=== PATIENT | female | born 1935 | race Caucasian/White ===

== ENCOUNTER 2018-10-22 22:38 | Inpatient (IN) ==
[2018-10-22 23:14] LABS: Basophils # 0.1 10*3/uL (0.0-0.2); Basophils % 0.5 % (0.0-0.8); Eosinophils # 0.5 10*3/uL (0.0-0.87); Eosinophils % 4.5 % (0.00-10.9); Hemoglobin 12.7 GM/DL (12.0-16.0); Immature Granulocytes % 0.5 %; Immature Granulocytes Absolute 0.06 #; Lymphocytes # 2.3 10*3/uL (1.4-4.0); Lymphocytes % 19.5 % (21.3-54.2); Mean Corpuscular HGB Conc 31.8 GM/DL (32-36); Mean Corpuscular Volume 99.5 FL (87-102); Mean Platelet Volume 10.9 FL (9.6-12.0); Monocytes % 8.6 % (1.7-12.7); Neutrophils % 66.4 % (38.7-73.9); Platelet Count 201 T/CUMM (130-400); Red Blood Count 4.02 MC/CUMM (3.8-5.5); Red Cell Distribution Width 13.1 % (9.3-17.3); White Blood Count 11.8 T/CUMM (4-12)
[2018-10-22] MEDS ORDERED: NITROGLYCERIN 2% OINT 1 INCH/GM PACK TOP STA (23:20)
[2018-10-22] MEDS ORDERED: ALBUTEROL/IPRATROPIUM 3 ML NEB RESP TX STA (23:20)
[2018-10-22] MEDS ORDERED: ONDANSETRON 4 MG/2 ML VIAL IV STA (23:20)
[2018-10-22] MEDS ORDERED: FUROSEMIDE 100 MG/10 ML VIAL IV STA (23:20)
[2018-10-22 23:33] LABS: Albumin 3.7 G/DL (3.4-5.0); Bilirubin,Total 0.4 MG/DL (0.2-1.0); Calcium 9.4 MG/DL (8.5-10.1); Total Protein 6.9 G/DL (6.4-8.3)
[2018-10-22 23:37] LABS: INR 0.9; PT Patient Result 10.2 SECS
[2018-10-23] MEDS ORDERED: ENOXAPARIN 100 MG/ML SYRINGE SUBCUT STA (00:06)
[2018-10-23] MEDS ORDERED: hydrALAZINE 20 MG/1 ML VIAL IV STA (00:07)
[2018-10-23] MEDS ORDERED: KETOROLAC 30 MG/1 ML VIAL IV STA (00:38)
[2018-10-23] MEDS ORDERED: KETOROLAC 30 MG/1 ML VIAL ONE (00:38)
[2018-10-23] MEDS ORDERED: DOCUSATE SODIUM 100 MG CAPSULE PO PRN (02:53)
[2018-10-23] MEDS ORDERED: MAGNESIUM SULF RIDER 2 GM in PREMIX 1 EACH IV PRN (02:53)
[2018-10-23] MEDS ORDERED: hydrALAZINE 25 MG TABLET PO PRN (02:53)
[2018-10-23] MEDS ORDERED: MAGNESIUM SULF RIDER 4 GM in PREMIX 1 EACH IV PRN (02:53)
[2018-10-23] MEDS: ACETAMINOPHEN 325 MG TABLET PO PRN ×3 (04:10→21:20)
[2018-10-23 06:34] LABS: PT Patient Result 10.6 SECS; Partial Thromboplastin Time 30.5 SECS (0-40)
[2018-10-23 06:35] LABS: Apearance,Urine CLEAR (Clear); Bilirubin,Urine Negative (Negative); Blood, Urine Moderate mg/dL (Negative); Glucose,Urine (UA) Negative (Negative); Hyaline Casts,Urine 1 /LPF (0-3); Ketones,Urine Negative (Negative); Mucus,Urine Occasional /LPF (Occasional); Nitrite,Urine Negative (Negative); Protein,Urine Negative; RBC,Urine 35 /HPF (0-4); Squamous Epithelial Cell,Urine Occasional /HPF (0-10); Urine Color Colorless (Yellow); Urine Specific Gravity 1.013 (1.001-1.035); Urine Urobilinogen < 2.0 EU/DL (0.2-1.0); WBC,Urine 5 /HPF (0-6)
[2018-10-23 06:55] LABS: Alanine Aminotransferase 47 U/L (13-56); Albumin 3.4 G/DL (3.4-5.0); Alkaline Phosphatase 92 U/L (45-117); Aspartate Amino Transferase 37 U/L (0-37); Bilirubin,Indirect 0.6 MG/DL (0.0-1.0); Blood Urea Nitrogen 28 MG/DL (7-18); Calcium 9.3 MG/DL (8.5-10.1); Glucose 107 MG/DL (74-106); HDL Cholesterol 80 MG/DL (40-60); Risk Ratio 2.24; Total Protein 6.4 G/DL (6.4-8.3); Triglycerides 56 MG/DL (2-150); VLDL CHOLESTEROL 11.2 MG/DL
[2018-10-23 07:01] LABS: Troponin I 0.059 NG/ML (0.00-0.045)
[2018-10-23] MEDS: MEMANTINE 10 MG TABLET PO SCH ×2 (09:35→21:22)
[2018-10-23] MEDS: MULTIVITAMIN (OCUVITE) TABLET PO SCH (09:36)
[2018-10-23] MEDS: DONEPEZIL 10 MG TABLET PO SCH (09:36)
[2018-10-23] MEDS: METOPROLOL SUCCINATE XL 50 MG TABLET PO SCH (09:36)
[2018-10-23] MEDS: FUROSEMIDE 40 MG/4 ML VIAL IV SCH ×2 (09:36→16:40)
[2018-10-23] MEDS ORDERED: oxyCODONE IR 5 MG TABLET PO PRN (14:17)
[2018-10-23] MEDS: POTASSIUM CHLORIDE RIDER 10 MEQ in PREMIX 1 EACH IV PRN ×2 (16:46→18:14)
[2018-10-23] MEDS: APIXABAN 5 MG TABLET PO SCH (21:21)
[2018-10-24 05:36] LABS: Basophils % 0.4 % (0.0-0.8); Eosinophils # 0.5 10*3/uL (0.0-0.87); Eosinophils % 4.3 % (0.00-10.9); Hematocrit 38.2 VOL% (35.7-47.0); Hemoglobin 11.9 GM/DL (12.0-16.0); Immature Granulocytes % 0.4 %; Immature Granulocytes Absolute 0.04 #; Mean Corpuscular HGB Conc 31.2 GM/DL (32-36); Mean Corpuscular Volume 99.7 FL (87-102); Mean Platelet Volume 10.9 FL (9.6-12.0); Monocytes % 10.9 % (1.7-12.7); Platelet Count 181 T/CUMM (130-400); Red Blood Count 3.83 MC/CUMM (3.8-5.5); Red Cell Distribution Width 12.9 % (9.3-17.3); White Blood Count 10.9 T/CUMM (4-12)
[2018-10-24 06:00] LABS: Calcium 8.9 MG/DL (8.5-10.1); Osmolality,Calculated 286.3 MOS/KG (273-304)
[2018-10-24] MEDS: POTASSIUM CHLORIDE RIDER 10 MEQ in PREMIX 1 EACH IV PRN ×2 (06:29→08:52)
[2018-10-24] MEDS: DONEPEZIL 10 MG TABLET PO SCH (08:46)
[2018-10-24] MEDS: MULTIVITAMIN (OCUVITE) TABLET PO SCH (08:46)
[2018-10-24] MEDS: MEMANTINE 10 MG TABLET PO SCH ×2 (08:46→21:56)
[2018-10-24] MEDS: METOPROLOL SUCCINATE XL 50 MG TABLET PO SCH (08:46)
[2018-10-24] MEDS: APIXABAN 5 MG TABLET PO SCH ×2 (08:46→21:56)
[2018-10-24] MEDS: FUROSEMIDE 40 MG/4 ML VIAL IV SCH ×2 (08:47→15:44)
[2018-10-24] MEDS ORDERED: ALBUTEROL/IPRATROPIUM 3 ML NEB RESP TX PRN (16:03)
[2018-10-25 05:00] LABS: Basophils # 0.1 10*3/uL (0.0-0.2); Basophils % 0.6 % (0.0-0.8); Eosinophils # 0.7 10*3/uL (0.0-0.87); Eosinophils % 5.7 % (0.00-10.9); Hematocrit 42.2 VOL% (35.7-47.0); Hemoglobin 13.3 GM/DL (12.0-16.0); Immature Granulocytes % 0.4 %; Immature Granulocytes Absolute 0.05 #; Lymphocytes # 2.5 10*3/uL (1.4-4.0); Lymphocytes % 20.6 % (21.3-54.2); Mean Corpuscular HGB Conc 31.5 GM/DL (32-36); Mean Corpuscular Volume 99.5 FL (87-102); Mean Platelet Volume 10.9 FL (9.6-12.0); Monocytes % 11.5 % (1.7-12.7); Neutrophils % 61.2 % (38.7-73.9); Platelet Count 200 T/CUMM (130-400); Red Blood Count 4.24 MC/CUMM (3.8-5.5); Red Cell Distribution Width 12.5 % (9.3-17.3); White Blood Count 12.2 T/CUMM (4-12)
[2018-10-25 05:20] LABS: Calcium 9.4 MG/DL (8.5-10.1); Osmolality,Calculated 286.1 MOS/KG (273-304)
[2018-10-25] MEDS: MULTIVITAMIN (OCUVITE) TABLET PO SCH (08:56)
[2018-10-25] MEDS: MEMANTINE 10 MG TABLET PO SCH ×2 (08:57→21:23)
[2018-10-25] MEDS: APIXABAN 5 MG TABLET PO SCH ×2 (08:57→21:22)
[2018-10-25] MEDS: DONEPEZIL 10 MG TABLET PO SCH (08:57)
[2018-10-25] MEDS: FUROSEMIDE 40 MG/4 ML VIAL IV SCH ×2 (08:58→16:27)
[2018-10-25] MEDS: METOPROLOL SUCCINATE XL 50 MG TABLET PO SCH (09:11)
[2018-10-25 11:18] LABS: Apearance,Urine Slightly Hazy (Clear); Bacteria,Urine Few /HPF (Few); Bilirubin,Urine Negative (Negative); Blood, Urine Moderate mg/dL (Negative); Glucose,Urine (UA) Negative (Negative); Ketones,Urine Negative (Negative); Nitrite,Urine Negative (Negative); Protein,Urine Negative; RBC,Urine 19 /HPF (0-4); Squamous Epithelial Cell,Urine Occasional /HPF (0-10); Urine Color Yellow (Yellow); Urine Specific Gravity 1.003 (1.001-1.035); Urine Urobilinogen < 2.0 EU/DL (0.2-1.0); WBC,Urine 35 /HPF (0-6)
[2018-10-25] MEDS ORDERED: AZITHROMYCIN 250 MG TABLET PO ONE (11:20)
[2018-10-25] MEDS: cefTRIAXone 1,000 MG in SYRINGE 1 EACH IV SCH (12:28)
[2018-10-26] MEDS: APIXABAN 5 MG TABLET PO SCH ×2 (08:20→21:35)
[2018-10-26] MEDS: DONEPEZIL 10 MG TABLET PO SCH (08:20)
[2018-10-26] MEDS: METOPROLOL SUCCINATE XL 50 MG TABLET PO SCH (08:20)
[2018-10-26] MEDS: MEMANTINE 10 MG TABLET PO SCH ×2 (08:21→21:32)
[2018-10-26] MEDS: MULTIVITAMIN (OCUVITE) TABLET PO SCH (08:21)
[2018-10-26] MEDS: AZITHROMYCIN 250 MG TABLET PO SCH (08:21)
[2018-10-26] MEDS: FUROSEMIDE 40 MG/4 ML VIAL IV SCH ×2 (08:21→15:32)
[2018-10-26] MEDS: cefTRIAXone 1,000 MG in SYRINGE 1 EACH IV SCH (12:06)
[2018-10-26] MEDS: ALUMINUM/MAGNES/SIMETH MAX STR 30 ML UDCUP PO PRN (21:35)
[2018-10-27 04:57] LABS: Basophils # 0.1 10*3/uL (0.0-0.2); Basophils % 0.4 % (0.0-0.8); Eosinophils # 0.5 10*3/uL (0.0-0.87); Eosinophils % 4.6 % (0.00-10.9); Hematocrit 43.9 VOL% (35.7-47.0); Hemoglobin 14.3 GM/DL (12.0-16.0); Immature Granulocytes % 0.3 %; Immature Granulocytes Absolute 0.03 #; Lymphocytes # 2.4 10*3/uL (1.4-4.0); Lymphocytes % 21.4 % (21.3-54.2); Mean Corpuscular HGB Conc 32.6 GM/DL (32-36); Mean Corpuscular Volume 97.8 FL (87-102); Mean Platelet Volume 10.8 FL (9.6-12.0); Monocytes % 10.9 % (1.7-12.7); Neutrophils % 62.4 % (38.7-73.9); Platelet Count 228 T/CUMM (130-400); Red Blood Count 4.49 MC/CUMM (3.8-5.5); Red Cell Distribution Width 12.3 % (9.3-17.3); White Blood Count 11.3 T/CUMM (4-12)
[2018-10-27 05:26] LABS: Calcium 9.5 MG/DL (8.5-10.1); Osmolality,Calculated 287.5 MOS/KG (273-304)
[2018-10-27 05:27] LABS: Albumin 2.9 G/DL (3.4-5.0); Bilirubin,Direct 0.12 MG/DL (0.0-0.20); Bilirubin,Total 1.1 MG/DL (0.2-1.0); Total Protein 6.7 G/DL (6.4-8.3)
[2018-10-27] MEDS: FUROSEMIDE 40 MG/4 ML VIAL IV SCH (10:02)
[2018-10-27] MEDS: DONEPEZIL 10 MG TABLET PO SCH (10:02)
[2018-10-27] MEDS: AZITHROMYCIN 250 MG TABLET PO SCH (10:02)
[2018-10-27] MEDS: MULTIVITAMIN (OCUVITE) TABLET PO SCH (10:03)
[2018-10-27] MEDS: MEMANTINE 10 MG TABLET PO SCH ×2 (10:03→21:12)
[2018-10-27] MEDS: METOPROLOL SUCCINATE XL 50 MG TABLET PO SCH (10:03)
[2018-10-27] MEDS: APIXABAN 5 MG TABLET PO SCH ×2 (10:03→21:12)
[2018-10-27] MEDS: ACETAMINOPHEN 325 MG TABLET PO PRN ×2 (14:24→21:11)
[2018-10-27] MEDS: FUROSEMIDE 40 MG TABLET PO SCH (17:27)
[2018-10-27] MEDS: PANTOPRAZOLE 40 MG TABLET PO SCH (18:13)
[2018-10-28] MEDS: ALUMINUM/MAGNES/SIMETH MAX STR 30 ML UDCUP PO PRN (07:33)
[2018-10-28] MEDS: APIXABAN 5 MG TABLET PO SCH (09:14)
[2018-10-28] MEDS: FUROSEMIDE 40 MG TABLET PO SCH (09:14)
[2018-10-28] MEDS: METOPROLOL SUCCINATE XL 50 MG TABLET PO SCH (09:14)
[2018-10-28] MEDS: MULTIVITAMIN (OCUVITE) TABLET PO SCH (09:15)
[2018-10-28] MEDS: DONEPEZIL 10 MG TABLET PO SCH (09:15)
[2018-10-28] MEDS: MEMANTINE 10 MG TABLET PO SCH (09:19)
[2018-10-28] MEDS: ACETAMINOPHEN 325 MG TABLET PO PRN (09:19)
[2018-10-28] MEDS: PANTOPRAZOLE 40 MG TABLET PO SCH (09:40)
[2018-10-28 12:11] VITALS: BP 151/69
== END 2018-10-28 14:18 | disposition swing bed (61) | DRG 176 ==
LOC: EDUNIT# → EDBD → N.EDINP 22:38 → N.ED 22:38 → SUATTDRO 10-23 01:03 → OBSVTOIN 10-23 01:03 → INTOOBSV 10-23 01:03 → N.TELEN 10-23 01:18
PROVIDERS: ADMIT Internal Medicine; ATTEND Internal Medicine Geriatric Medicine